=== PATIENT | male | born 1980 | race Caucasian/White ===

== ENCOUNTER 2018-10-03 15:17 | Emergency (ER) | payer BC, OTHER ==
[~2018-10-03] VITALS: Ht 193 cm; Wt 120.2 kg
--- NOTE | 2018-10-03 15:34 | ED Upper Extremity ---
General Chief Complaint: Laceration Stated Complaint: RIGHT INDEX FINGER LACERATION Source: patient Exam Limitations: no limitations History of Present Illness Date Seen by Provider: Oct 03, 2018 Time Seen by Provider: 15:33 Initial Comments 37-year-old male who presents to emergency room with complaints of laceration to his right second finger. He reports that he was running a table saw when his finger nail, in the blade. He has an avulsion to the distal tip of the finger. Bleeding is controlled at this time. He is not up-to-date on her tetanus vaccine. Onset: just prior to arrival Pain/Injury Location: right 2nd finger Method of Injury: incised Modifying Factors: Worse With Movement Allergies and Home Medications Allergies Coded Allergies: No Known Drug Allergies (Verified Allergy, Unknown, 01/09/08) Home Medications Hydrocodone Bit/Acetaminophen 1 Tab Tab, 1-2 EACH PO Q6H PRN for PAIN-MODERATE Prescribed by: ЕЛЕНА VARGAS on 10/03/18 1629 Patient Home Medication List Home Medication List Reviewed: Yes Review of Systems Constitutional: no symptoms reported, see HPI Skin: see HPI, other (laceration to right second finger. ) All Other Systems Reviewed Negative Unless Noted: Yes Past Peyttsr-Vubylj-Abicby Hx Past Med/Social Hx: Reviewed Nursing Past Med/Soc Hx Past Medical History Reproductive Disorders: No Family Medical History Reviewed Nursing Family Hx Physical Exam Vital Signs Vital Signs - First Documented 10/03/18 15:36 Temp 98.6 Pulse 86 Resp 14 B/P (MAP) 142/86 (104) Pulse Ox 98 O2 Delivery Room Air Capillary Refill : Height, Weight, BMI Height: '" Weight: lbs. oz. kg; BMI Method: General Appearance: WD/WN, no apparent distress Hand: Right, nail injury (avulsion to the distal tip of the nail on the right second finger.) Neurologic/Psychiatric: alert, normal mood/affect, oriented x 3 Skin: normal color, warm/dry Procedures/Interventions Wound Location: Upper Extremities Other Wound Location Right hand distal tip of the second finger. Partial nail avulsion. Wound Length (cm): 1 Wound's Depth, Shape: nail-avulsed Wound Explored: clean Irrigated w/ Saline (ccs): 500 Anesthesia: 1% Lidocaine (without epinephrine) Volume Anesthetic (ccs): 3 Other Closure Supply: Wound Adhesive Progress A digital block was performed on the right second finger. Approximately 1 mL was injected on both sides of the finger. The patient was given time for the anesthetic to set in and an additional 1mL was injected at the distal tip of the finger. A finger tourniquet was applied to control bleeding. Was cleaned and irrigated with normal saline and Betasept. Skin affix was applied to the distal tip of the avulsion nail. It was left that to dry. The finger tourniquet was removed and bleeding was controlled with glue. Patient tolerated procedure well. Progress/Results/Core Measures Results/Orders My Orders Medications Given in ED Vital Signs/I&O Departure Impression Primary Impression: Nail avulsion, finger Disposition: HOME, SELF-CARE Condition: Stable/Unchanged Departure-Patient Inst. Decision time for Depature: 16:27 Referrals: SNEHA WILKERSON MD (PCP/Family) Primary Care Physician Patient Instructions: Nail Avulsion (DC) Add. Discharge Instructions: Take medications as directed. You may use ibuprofen and Tylenol as directed by the bottle for pain relief. Watch for signs of infection such as increased redness, swelling, drainage, pain. Follow-up with her primary care provider as needed. Let the glue fall off on its own. Avoid lotions creams and ointments and soaps as this will cause breakdown to the glue. All discharge instructions reviewed with patient and/or family. Voiced understanding. Scripts Hydrocodone Bit/Acetaminophen (Hydrocodone/Acetaminophen 5/325mg Tablet) 1 Tab Tab 1-2 EACH PO Q6H PRN for PAIN-MODERATE MDD 10, #14 TAB Prov: ЕЛЕНА VARGAS 10/03/18 ЕЛЕНА VARGAS Oct 03, 2018 15:34
[2018-10-03] MEDS ORDERED: TETANUS,DIPTH,PERTUSS P/F (BOOSTRIX) 0.5 ML VIAL IM ONE (15:45)
[2018-10-03] MEDS ORDERED: LIDOCAINE 1% INJ 20 ML 20 ML VIAL INJ ONE (15:45)
--- NOTE | 2018-10-03 15:52 | Diagnostic Imaging Report ---
INDICATION: Injury to the tip of the second finger with a table saw. TIME OF EXAMINATION: 3:37 PM. TECHNIQUE: Three views of the right second finger were obtained. FINDINGS: The phalanges appear to be intact. No bony abnormality is seen. There appears to be a soft tissue injury involving the tip of the second finger. No definite radiopaque foreign body is seen. IMPRESSION: No acute bony abnormality is detected. Dictated by: Dictated on workstation # [id number]
[2018-10-03] MEDS ORDERED: ONDANSETRON 4 MG (ZOFRAN) ORAL DISSOLVE TAB ONE (16:02)
[2018-10-03] MEDS ORDERED: ACHD5005 PO (16:29)
[2018-10-03 16:33] VITALS: BP 142/86
== END 2018-10-03 16:45 | disposition home or self-care (01) ==
LOC: EDUNIT# 15:17 → ER 15:19
DX: S61.310A Laceration without foreign body of right index finger with damage to nail, initial encounter (principal); W31.2XXA Contact with powered woodworking and forming machines, initial encounter
CPT/HCPCS: 73140; 90715; 99284

== ENCOUNTER 2018-10-09 18:59 | Emergency (ER) | payer BC | END 2018-10-09 20:25 | disposition home or self-care (01) | LOC: ER 18:59 ==

== ENCOUNTER 2020-04-06 10:51 | Inpatient (IN) | payer BC ==
[~2020-04-06] VITALS: Ht 190.5 cm; Wt 122.3 kg
[~2020-04-06 10:51] MED LIST: ACHD5005 PO; CEPH-507 PO; ESCI10TA PO; IRBE150T23 PO; SULF1TAB35 PO
--- NOTE | 2020-04-06 11:37 | ED Abdominal Pain ---
General Chief Complaint: Abdominal/GI Problems Stated Complaint: DIARRHEA;ABD PAIN Nursing Triage Note: PT AMB TO RM 8 WITH COMPLAINT OF RLQ ABD PAIN AND DIARRHEA SINCE SATURDAY. STATES VOMITED ONCE THIS MORNING. Sepsis Screen: No Definite Risk Source of Information: Patient Exam Limitations: No Limitations History of Present Illness Date Seen by Provider: Apr 06, 2020 Time Seen by Provider: 11:35 Initial Comments To ER with reports of right lower quadrant abdominal pain that began on Saturday evening. He's had some diarrhea since then. He vomited once this morning. Last food intake was last night. No fevers. Timing/Duration: 2-3 Days Severity/Quality: Moderate Location: RLQ Radiation: No Radiation Activities at Onset: None Associated Symptoms: Nausea/Vomiting Allergies and Home Medications Allergies Coded Allergies: No Known Drug Allergies (Verified , 01/09/08) Home Medications Cephalexin 500 Mg Capsule, 500 MG PO TID Prescribed by: NELDA ECHEVARRIA on 10/09/182010 Hydrocodone Bit/Acetaminophen 1 Tab Tab, 1-2 EACH PO Q6H PRN for PAIN-MODERATE Prescribed by: ЕЛЕНА VARGAS on 10/03/18 1629 Irbesartan 150 Mg Tablet, 150 MG PO DAILY, (Reported) Patient Home Medication List Home Medication List Reviewed: Yes Review of Systems Review of Systems Constitutional: see HPI EENTM: No Symptoms Reported Respiratory: No Symptoms Reported Cardiovascular: No Symptoms Reported Gastrointestinal: See HPI, Abdominal Pain, Diarrhea, Nausea Genitourinary: No Symptoms Reported Musculoskeletal: no symptoms reported Skin: no symptoms reported Psychiatric/Neurological: No Symptoms Reported Endocrine: No Symptoms Reported Hematologic/Lymphatic: No Symptoms Reported Past Bbclxhp-Edlvss-Gviyil Hx Patient Social History Alcohol Use: Denies Use Recreational Drug Use: No Smoking Status: Current Everyday Smoker Type Used: Cigarettes 2nd Hand Smoke Exposure: No Recent Foreign Travel: No Contact w/Someone Who Travel: No Recent Infectious Disease Expo: No Recent Hopitalizations: No Immunizations Up To Date Tetanus Booster (TDap): More than 5yrs Seasonal Allergies Seasonal Allergies: No Past Medical History Surgeries: No Respiratory: No Cardiac: Yes Hypertension Neurological: No Reproductive Disorders: No Genitourinary: No Gastrointestinal: No Musculoskeletal: No Endocrine: No HEENT: No Cancer: No Psychosocial: Yes Anxiety Integumentary: No Blood Disorders: No Physical Exam Vital Signs Vital Signs - First Documented 7/22/20 11:12 Temp 36.7 Pulse 107 Resp 20 B/P (MAP) 122/89 (100) Pulse Ox 97 O2 Delivery Room Air Capillary Refill : Less Than 3 Seconds Height/Weight/BMI Height: 6'4.00" Weight: 265lbs. oz. 120.563588hl; 33.00 BMI Method:Stated General Appearance: WD/WN, no apparent distress Respiratory: normal breath sounds, no respiratory distress, no accessory muscle use Cardiovascular: regular rate, rhythm, no murmur Peripheral Pulses: 0 Carotid (R), 0 Carotid (L), 0 Femoral (R), 0 Femoral (L), 0 Dorsalis Pedis (R), 0 Left Dors-Pedis (L), 0 Radial Pulses (R), 0 Radial Pulses (L) Gastrointestinal: normal bowel sounds, soft, rebound, tenderness Extremities: normal range of motion, non-tender Neurologic/Psychiatric: alert, normal mood/affect, oriented x 3 Skin: normal color, warm/dry Progress/Results/Core Measures Results/Orders Lab Results Laboratory Tests Test 04/06/20 11:54 Range/Units White Blood Count 19.1 H 4.3-11.0 10^3/uL Red Blood Count 5.93 H 4.35-5.85 10^6/uL Hemoglobin 18.4 H 13.3-17.7 G/DL Hematocrit 52 40-54 % Mean Corpuscular Volume 88 80-99 FL Mean Corpuscular Hemoglobin 31 25-34 PG Mean Corpuscular Hemoglobin Concent 35 32-36 G/DL Red Cell Distribution Width 13.6 10.0-14.5 % Platelet Count 362 130-400 10^3/uL Mean Platelet Volume 10.0 7.4-10.4 FL Neutrophils (%) (Auto) 81 H 42-75 % Lymphocytes (%) (Auto) 9 L 12-44 % Monocytes (%) (Auto) 7 0-12 % Eosinophils (%) (Auto) 3 0-10 % Basophils (%) (Auto) 0 0-10 % Neutrophils # (Auto) 15.4 H 1.8-7.8 X 10^3 Lymphocytes # (Auto) 1.8 1.0-4.0 X 10^3 Monocytes # (Auto) 1.4 H 0.0-1.0 X 10^3 Eosinophils # (Auto) 0.5 H 0.0-0.3 10^3/uL Basophils # (Auto) 0.0 0.0-0.1 10^3/uL Neutrophils % (Manual) 75 % Lymphocytes % (Manual) 11 % Monocytes % (Manual) 5 % Eosinophils % (Manual) 3 % Basophils % (Manual) 0 % Band Neutrophils 6 % Blood Morphology Comment NORMAL Sodium Level 134 L 135-145 MMOL/L Potassium Level 4.6 3.6-5.0 MMOL/L Chloride Level 109 H 98-107 MMOL/L Carbon Dioxide Level 14 L 21-32 MMOL/L Anion Gap 11 5-14 MMOL/L Blood Urea Nitrogen 13 7-18 MG/DL Creatinine 1.11 0.60-1.30 MG/DL Estimat Glomerular Filtration Rate > 60 BUN/Creatinine Ratio 12 Glucose Level 114 H 70-105 MG/DL Calcium Level 8.8 8.5-10.1 MG/DL Corrected Calcium 8.5 8.5-10.1 MG/DL Total Bilirubin 0.6 0.1-1.0 MG/DL Aspartate Amino Transf (AST/SGOT) 23 5-34 U/L Alanine Aminotransferase (ALT/SGPT) 43 0-55 U/L Alkaline Phosphatase 99 40-136 U/L Total Protein 7.9 6.4-8.2 GM/DL Albumin 4.4 3.2-4.5 GM/DL My Orders Orders - NELDA ECHEVARRIA APRN Cbc With Automated Diff (04/06/20 11:30) Comprehensive Metabolic Panel (04/06/20 11:30) Ua Culture If Indicated (04/06/20 11:30) Ed Iv/Invasive Line Start (04/06/20 11:30) Ketorolac Injection (Toradol Injection) (04/06/20 11:45) Fentanyl Injection (Sublimaze Injection (04/06/20 11:45) Ns Iv 1000 Ml (Sodium Chloride 0.9%) (04/06/20 11:45) Ct Abd/Pelvis Wo(Kidney Stone) (04/06/20 11:33) Manual Differential (04/06/20 11:54) Ketorolac Injection (Toradol Injection) (04/06/20 12:30) Medications Given in ED Current Medications Medications Dose Ordered Sig/Mark Route Start Time Stop Time Status Last Admin Dose Admin Fentanyl Citrate 50 mcg ONCE ONCE IVP 04/06/20 11:45 04/06/20 11:46 DC 04/06/20 12:05 50 MCG Ketorolac Tromethamine 15 mg ONCE ONCE IVP 04/06/20 12:30 04/06/20 12:31 DC 04/06/20 12:05 15 MG Vital Signs/I&O 04/06/20 11:12 Temp 36.7 Pulse 107 Resp 20 B/P (MAP) 122/89 (100) Pulse Ox 97 O2 Delivery Room Air Blood Pressure Mean: 100 Diagnostic Imaging Diagonstic Imaging: CT Comments NAME: RADHA TREVINO [facility] REC#: [id number] PT STATUS: REG ER : 1980 PHYSICIAN: NELDA ECHEVARRIA APRN ADMIT DATE: 04/06/20/ER Draft Date of Exam:04/06/20 CT ABD/PELVIS WO(KIDNEY STONE) PROCEDURE: CT urinary tract, rule out kidney stone. TECHNIQUE: Multiple contiguous axial images were obtained through the abdomen and pelvis without the use of intravenous contrast. Auto Exposure Controls were utilized during the CT exam to meet ALARA standards for radiation dose reduction. INDICATION: Right flank pain Comparison is made to study of 06/17/2014. Unenhanced images of the liver, gallbladder, pancreas and spleen are unremarkable. There is also no evidence of adrenal gland abnormality. There are calcifications in the lower mediastinum which may be related to previous granulomatous exposure. There is no evidence of renal calculus or hydronephrosis. There is no evidence of ureteric stone or dilatation. No free fluid is seen within the abdomen or pelvis. The bladder is incompletely evaluated which limits evaluation. There is persistent prostatic calcification without interval change. No organized fluid collection is identified. Slight increased density at the root of mesentery is similar to previous study without evidence of pathologic adenopathy or abscess. IMPRESSION: Stable imaging of the abdomen without evidence of acute abnormality. In particular, there is no evidence of obstructive uropathy. Dictated on workstation # [id number] Dict: 04/06/20 1150 Trans: 04/06/20 1155 CV [id number] Interpreted by: DENIZ GAY MD Electronically signed by: Departure Communication (Admissions) Time/Spoke to Admitting Phy: 13:[address] Valdez, would like to admit to medicine, consult him. We will also consult radiology to see if this is amenable to participate in his drain. Dr. Escobedo felt as though he could aspirate this via a transgluteal approach. He'll discuss plan more with Dr. Valdez. We'll use Zosykalpesh plus yl. 1203-called radiology to discuss the cystic structure at the rectosigmoid junction. He agrees this could be abscess versus seroma. I will consult surgery. He'll add an addendum to the report. Impression Primary Impression: pericolonic mass Additional Impression: Abdominal pain Qualified Codes: R10.9 - Unspecified abdominal pain Disposition: ADMITTED INPATIENT Condition: Stable Admissions Decision to Admit Reason: Admit from ER (General) Decision to Admit/Date: Apr 06, 2020 Time/Decision to Admit Time: 13:29 Departure-Patient Inst. Referrals: SALAS WILLARD MD (PCP/Family) Primary Care Physician NELDA ECHEVARRIA APRN Apr 06, 2020 11:37
[2020-04-06] MEDS ORDERED: KETOROLAC 30 MG/ML VIAL IJ ONE (11:45)
[2020-04-06] MEDS ORDERED: fentaNYL INJECTION 100 MCG/2 ML AMP IVP ONE (11:45)
[2020-04-06] MEDS ORDERED: NS IV 1000 ML 1,000 ML IV SCH (11:45)
--- NOTE | 2020-04-06 11:55 | Diagnostic Imaging Report ---
PROCEDURE: CT urinary tract, rule out kidney stone. TECHNIQUE: Multiple contiguous axial images were obtained through the abdomen and pelvis without the use of intravenous contrast. Auto Exposure Controls were utilized during the CT exam to meet ALARA standards for radiation dose reduction. INDICATION: Right flank pain Comparison is made to study of 06/17/2014. Unenhanced images of the liver, gallbladder, pancreas and spleen are unremarkable. There is also no evidence of adrenal gland abnormality. There are calcifications in the lower mediastinum which may be related to previous granulomatous exposure. There is no evidence of renal calculus or hydronephrosis. There is no evidence of ureteric stone or dilatation. No free fluid is seen within the abdomen or pelvis. The bladder is incompletely evaluated which limits evaluation. Just superior and posterior to the urinary bladder there is a mildly lobulated circumscribed lesion which may contain fluid. The Hounsfield density is 14 indicating a density slightly greater than simple fluid. No definite internal nodule is identified. There is persistent prostatic calcification without interval change. No organized fluid collection is identified. Slight increased density at the root of mesentery is similar to previous study without evidence of pathologic adenopathy. IMPRESSION: No definite obstructive uropathy is identified however there is an approximately 6.8 x 6.3 x 4.8 cm presumed fluid collection posterior and superior to the urinary bladder which was not seen on study of 06/17/2014. This could represent hematoma or seroma. Possibility of infected fluid collection is not excluded. There does appear to be separation of the structure and the adjacent bladder however there is contact with the sigmoid colon. Diverticular abscess is considered less likely but not fully excluded. Dictated by: Dictated on workstation # [id number]
[2020-04-06 11:59] LABS: BASOPHILS % (AUTO) 0 % (0-10); EOSINOPHILS # (AUTO) 0.5 10^3/uL (0.0-0.3); EOSINOPHILS % (AUTO) 3 % (0-10); HEMATOCRIT 52 % (40-54); HEMOGLOBIN 18.4 G/DL (13.3-17.7); LYMPHOCYTES # (AUTO) 1.8 X 10^3 (1.0-4.0); LYMPHOCYTES % (AUTO) 9 % (12-44); MEAN CORPUSCULAR HEMOGLOBIN 31 PG (25-34); MEAN CORPUSCULAR HGB CONC 35 G/DL (32-36); MEAN CORPUSCULAR VOLUME 88 FL (80-99); MONOCYTES # (AUTO) 1.4 X 10^3 (0.0-1.0); MONOCYTES % (AUTO) 7 % (0-12); NEUTROPHILS # (AUTO) 15.4 X 10^3 (1.8-7.8); NEUTROPHILS % (AUTO) 81 % (42-75); PLATELET COUNT 362 10^3/uL (130-400); RED CELL DISTRIBUTION WIDTH 13.6 % (10.0-14.5); WHITE BLOOD COUNT 19.1 10^3/uL (4.3-11.0)
[2020-04-06 12:12] LABS: ALBUMIN 4.4 GM/DL (3.2-4.5); CHLORIDE 109 MMOL/L (98-107); POTASSIUM 4.6 MMOL/L (3.6-5.0); SODIUM 134 MMOL/L (135-145)
[2020-04-06 12:13] LABS: CALCIUM 8.8 MG/DL (8.5-10.1)
[2020-04-06 12:14] LABS: GLUCOSE 114 MG/DL (70-105)
[2020-04-06 12:15] LABS: TOTAL PROTEIN 7.9 GM/DL (6.4-8.2)
[2020-04-06 12:16] LABS: BILIRUBIN,TOTAL 0.6 MG/DL (0.1-1.0); CARBON DIOXIDE 14 MMOL/L (21-32)
[2020-04-06 12:18] LABS: ALKALINE PHOSPHATASE 99 U/L (40-136); CREATININE SERUM 1.11 MG/DL (0.60-1.30); GFR ESTIMATED > 60
[2020-04-06 12:19] LABS: BUN/CREATININE RATIO 12
[2020-04-06 12:21] LABS: ALANINE AMINOTRANSFERASE 43 U/L (0-55)
[2020-04-06] MEDS ORDERED: KETOROLAC 15 MG/ML VIAL IVP ONE (12:30)
[2020-04-06 12:39] LABS: BAND NEUTROPHILS 6 %; BASOPHILS % (MANUAL) 0 %; EOSINOPHILS % (MANUAL) 3 %; LYMPHOCYTES % (MANUAL) 11 %; MONOCYTES % (MANUAL) 5 %; NEUTROPHILS % (MANUAL) 75 %
[2020-04-06 12:40] LABS: RBC MORPH NORMAL
--- NOTE | 2020-04-06 14:50 | NUR ---
RADHA TREVINO admitted to room 413-1, with an admitting diagnosis of RECTOSIGMOID MASS, on 04/06/20 from ED via , accompanied by STAFF/. RADHA TREVINO introduced to surroundings, call light, bed controls, phone, TV, temperature control, lights, meal times, smoking policy, visitor policy, side rail policy, bathrooms and showers. Patient Rights given to patient in the handbook. RADHA TREVINO verbalizes understanding that [facility] is not responsible for the loss or damage to any personal effects or valuables that are kept in the patients posession during their hospitalization. RADHA TREVINO verbalizes understanding of Interdisciplinary Patient Education. Patient and/or family were informed about the Rapid Response Team and its purpose.
[2020-04-06 14:52] VITALS: BP 109/60
[2020-04-06] MEDS ORDERED: ONDANSETRON 4 MG/2 ML (SDV) Z0FRAN IVP PRN (15:15)
[2020-04-06] MEDS: fentaNYL INJECTION 100 MCG/2 ML AMP IVP PRN ×2 (15:16→20:13)
[2020-04-06] MEDS: LACTATED RINGERS 1,000 ML IV SCH ×2 (15:22→23:53)
[2020-04-06] MEDS ORDERED: PIPERACILLIN/TAZO 4.5 GM/NS 100 ML IV ONE ×2 (15:30)
[2020-04-06 15:53] VITALS: BP 113/67
--- NOTE | 2020-04-06 17:41 | History & Physical ---
HPI History of Present Illness: 39 yo male presented to ER due to severe lower abdominal/pelvic pain. He had diarrhea starting about 3 days ago and has had some nausea and vomited once. Today he had severe pelvic pain. He has not urinated since this morning, but states he has not felt the need to. He denies fever, blood in stool. Source: patient Date seen by provider: Apr 06, 2020 Time Seen by Provider: 13:40 Attending Physician Sukumar Castillo MD PCP Neeta Steinberg MD Consult Date of Admission Apr 06, 2020 at 13:36 Home Medications Home Medications Reviewed patient Home Medication Reconciliation performed by pharmacy medication reconciliations electronics warfare technician and/or nursing. Patients Allergies have been reviewed. Allergies Coded Allergies: No Known Drug Allergies (Verified , 01/09/08) XCV-Xfujpg-Ygkvxn Hx Patient Social History Alcohol Use: Denies Use Recreational Drug Use: No Smoking Status: Current Everyday Smoker Type Used: Cigarettes 2nd Hand Smoke Exposure: No Recent Foreign Travel: No Contact w/other who traveled: No Recent Hopitalizations: No Recent Infectious Disease Expo: No Immunizations Up To Date Tetanus Booster (TDap): More than 5yrs Past Medical History PMHx: HTN SurgHx: Denies Family Medical History Significant Family History: Hypertension Review of Systems ([facility]) Constitutional: No fever EENTM: No nose congestion, No throat pain Respiratory: No cough, No short of breath Cardiovascular: No chest pain Gastrointestinal: see HPI Genitourinary: No dysuria Musculoskeletal: no symptoms reported Skin: No rash Reviewed Test Results Reviewed Test Results Lab Laboratory Tests Test 04/06/20 11:54 Range/Units White Blood Count 19.1 H 4.3-11.0 10^3/uL Red Blood Count 5.93 H 4.35-5.85 10^6/uL Hemoglobin 18.4 H 13.3-17.7 G/DL Hematocrit 52 40-54 % Mean Corpuscular Volume 88 80-99 FL Mean Corpuscular Hemoglobin 31 25-34 PG Mean Corpuscular Hemoglobin Concent 35 32-36 G/DL Red Cell Distribution Width 13.6 10.0-14.5 % Platelet Count 362 130-400 10^3/uL Mean Platelet Volume 10.0 7.4-10.4 FL Neutrophils (%) (Auto) 81 H 42-75 % Lymphocytes (%) (Auto) 9 L 12-44 % Monocytes (%) (Auto) 7 0-12 % Eosinophils (%) (Auto) 3 0-10 % Basophils (%) (Auto) 0 0-10 % Neutrophils # (Auto) 15.4 H 1.8-7.8 X 10^3 Lymphocytes # (Auto) 1.8 1.0-4.0 X 10^3 Monocytes # (Auto) 1.4 H 0.0-1.0 X 10^3 Eosinophils # (Auto) 0.5 H 0.0-0.3 10^3/uL Basophils # (Auto) 0.0 0.0-0.1 10^3/uL Neutrophils % (Manual) 75 % Lymphocytes % (Manual) 11 % Monocytes % (Manual) 5 % Eosinophils % (Manual) 3 % Basophils % (Manual) 0 % Band Neutrophils 6 % Blood Morphology Comment NORMAL Sodium Level 134 L 135-145 MMOL/L Potassium Level 4.6 3.6-5.0 MMOL/L Chloride Level 109 H 98-107 MMOL/L Carbon Dioxide Level 14 L 21-32 MMOL/L Anion Gap 11 5-14 MMOL/L Blood Urea Nitrogen 13 7-18 MG/DL Creatinine 1.11 0.60-1.30 MG/DL Estimat Glomerular Filtration Rate > 60 BUN/Creatinine Ratio 12 Glucose Level 114 H 70-105 MG/DL Calcium Level 8.8 8.5-10.1 MG/DL Corrected Calcium 8.5 8.5-10.1 MG/DL Total Bilirubin 0.6 0.1-1.0 MG/DL Aspartate Amino Transf (AST/SGOT) 23 5-34 U/L Alanine Aminotransferase (ALT/SGPT) 43 0-55 U/L Alkaline Phosphatase 99 40-136 U/L Total Protein 7.9 6.4-8.2 GM/DL Albumin 4.4 3.2-4.5 GM/DL Radiology CT abd/pelvis 04/06:DRAFT IMPRESSION: No definite obstructive uropathy is identified however there is an approximately 6.8 x 6.3 x 4.8 cm presumed fluid collection posterior and superior to the urinary bladder which was not seen on study of 06/17/2014. This could represent hematoma or seroma. Possibility of infected fluid collection is not excluded. There does appear to be separation of the structure and the adjacent bladder however there is contact with the sigmoid colon. Diverticular abscess is considered less likely but not fully excluded. Physical Exam-([facility]) Physical Exam Vital Signs VS - Last 72 Hours, by Label 04/06/20 04/06/20 04/06/20 04/06/20 11:12 14:35 14:52 15:04 Temp 36.7 36.7 Pulse 107 94 94 Resp 20 20 20 B/P (MAP) 122/89 (100) 109/60 109/60 Pulse Ox 97 96 96 96 O2 Delivery Room Air Room Air Room Air Room Air 04/06/20 15:53 Temp 36.5 Pulse 87 Resp 16 B/P (MAP) 113/67 (82) Pulse Ox 95 O2 Delivery Room Air Capillary Refill : Less Than 3 SecondsLess Than 3 Seconds General Appearance: WD/WN, no apparent distress Respiratory: lungs clear, normal breath sounds Cardiovascular: regular rate, rhythm, no murmur Gastrointestinal: normal bowel sounds, distended (lower abdomen, ttp across both lower quadrants with some involuntary guarding) Extremities: no pedal edema Neurologic/Psychiatric: alert, normal mood/affect Skin: normal color, warm/dry Assessment/Plan Assessment/Plan Admission Status: Inpatient Order (span 2 midnights) Reason for Inpatient Admission: Large suspected intrabdominal abscess which will require IV abx and drainage. (1) Pelvic fluid collection Status: Acute Assessment & Plan: Suspect infection given leukocytosis and no explanation for a seroma or hematoma. IV zosyn and flagyl. Plan for IR drainage tomorrow for further evaluation. (2) Hypertension Status: Chronic Qualifiers: Qualified Codes: I10 - Essential (primary) hypertension (3) DVT prophylaxis Status: Acute Assessment & Plan: SCDs, no pharmacologic due to procedure planned. Clinical Quality Measures DVT/VTE Risk/Contraindication: RFS Level Per Nursing on Admit: 1=Low/No VTE PPX SUKUMAR CASTILLO MD Apr 06, 2020 17:41
[2020-04-06] MEDS: NICOTINE 21 MG (NICODERM) PATCH TD PRN (17:50)
--- NOTE | 2020-04-06 19:39 | Consultation - Surgery ---
History of Present Illness History of Present Illness Patient Consulted On(gloria/time) 04/06/20 19:33 Date Seen by Provider: Apr 06, 2020 Time Seen by Provider: 19:33 History of Present Illness Consult requested by Dr. Castillo for pelvic fluid collection. Patient is a 39 year old male who has had 3 days of lower right lower quadrant abdominal pain. That is sharp pressure type pain. Rated at worse 8/10, currently 4/10. Has had diarrhea for 3 days. No blood in stools. Patient states bowel movements seem to make pain worse. Stretching his body out seems to make pain a little better. Never had any symptoms like this before. Denies any abdominal or rectal trauma. Patient has some nuasea and emesis today. Pain has progressively worsened so came to [facility]. Ct abd/pelvis performed IMPRESSION: No definite obstructive uropathy is identified however there is an approximately 6.8 x 6.3 x 4.8 cm presumed fluid collection posterior and superior to the urinary bladder which was not seen on study of 06/17/2014. This could represent hematoma or seroma. Possibility of infected fluid collection is not excluded. There does appear to be separation of the structure and the adjacent bladder however there is contact with the sigmoid colon. Diverticular abscess is considered less likely but not fully excluded. Paitent denies fever sweats chills shortness of breath or chest pain. Allergies and Home Medications Allergies Coded Allergies: No Known Drug Allergies (Verified , 01/09/08) Home Medications Cephalexin 500 Mg Capsule, 500 MG PO TID Prescribed by: NELDA ECHEVARRIA on 10/09/182010 Hydrocodone Bit/Acetaminophen 1 Tab Tab, 1-2 EACH PO Q6H PRN for PAIN-MODERATE Prescribed by: ЕЛЕНА VARGAS on 10/03/18 1629 Irbesartan 150 Mg Tablet, 150 MG PO DAILY, (Reported) Patient Home Medication List Home Medication List Reviewed: Yes Past Guolcvu-Niholl-Vujnec Hx Patient Social History Alcohol Use: Past History Recreational Drug Use: No Smoking Status: Current Everyday Smoker Type Used: Cigarettes 2nd Hand Smoke Exposure: No Recent Foreign Travel: No Contact w/Someone Who Travel: No Recent Infectious Disease Expo: No Recent Hopitalizations: No Immunizations Up To Date Tetanus Booster (TDap): More than 5yrs Seasonal Allergies Seasonal Allergies: No Surgeries History of Surgeries: No Respiratory History of Respiratory Disorde: No Cardiovascular History of Cardiac Disorders: Yes Cardiac Disorders: Hypertension Neurological History of Neurological Disord: No Reproductive System Hx Reproductive Disorders: No Genitourinary History of Genitourinary Disor: No Gastrointestinal History of Gastrointestinal Di: No Musculoskeletal History of Musculoskeletal Dis: No Endocrine History of Endocrine Disorders: No HEENT History of HEENT Disorders: No Cancer History of Cancer: No Psychosocial History of Psychiatric Problem: Yes Behavioral Health Disorders: Anxiety Integumentary History of Skin or Integumenta: No Blood Transfusions History of Blood Disorders: No Reviewed Nursing Assessment Reviewed/Agree w Nursing PMH: Yes Family Medical History Significant Family History: Hypertension Review of Systems-General Constitutional: No chills, No fever EENTM: No hearing loss, No ear pain, No blurred vision Respiratory: No cough, No dyspnea on exertion Cardiovascular: No chest pain, No palpitations Gastrointestinal: RLQ, abdominal pain (RLQ), diarrhea, nausea, vomiting Genitourinary: decreased output; No hematuria Musculoskeletal: No back pain, No joint pain Skin: No change in color, No change in hair/nails Psychiatric/Neurological: Denies Anxiety, Denies Depressed, Denies Emotional Problems All Other Systems Reviewed Negative Unless Noted: Yes (Negative excepted noted.) Physical Exam-General Problems Physical Exam Vital Signs Vital Signs - First Documented 04/06/20 11:12 Temp 36.7 Pulse 107 Resp 20 B/P (MAP) 122/89 (100) Pulse Ox 97 O2 Delivery Room Air Capillary Refill : Less Than 3 SecondsLess Than 3 Seconds General Appearance: WD/WN, no apparent distress HEENT: PERRL/EOMI, normal ENT inspection Neck: non-tender, supple Respiratory: chest non-tender, no respiratory distress, no accessory muscle use Cardiovascular: regular rate, rhythm, no edema Gastrointestinal: soft, tenderness (right lower quadrant/suprapubic tenderness); No mass Rectal: deferred Back: no CVA tenderness, no vertebral tenderness Extremities: non-tender, normal inspection, no pedal edema 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, no motor/sensory deficits, alert, normal mood/affect, oriented x 3 Skin: normal color, warm/dry Lymphatic: no adenopathy Data Review Labs Laboratory Tests 04/06/20 11:54: White Blood Count 19.1H, Red Blood Count 5.93H, Hemoglobin 18.4H, Hematocrit 52, Mean Corpuscular Volume 88, Mean Corpuscular Hemoglobin 31, Mean Corpuscular Hemoglobin Concent 35, Red Cell Distribution Width 13.6, Platelet Count 362, Mean Platelet Volume 10.0, Neutrophils (%) (Auto) 81H, Lymphocytes (%) (Auto) 9L , Monocytes (%) (Auto) 7, Eosinophils (%) (Auto) 3, Basophils (%) (Auto) 0, Neutrophils # (Auto) 15.4H, Lymphocytes # (Auto) 1.8, Monocytes # (Auto) 1.4H, Eosinophils # (Auto) 0.5H, Basophils # (Auto) 0.0, Neutrophils % (Manual) 75, Lymphocytes % (Manual) 11, Monocytes % (Manual) 5, Eosinophils % (Manual) 3, Basophils % (Manual) 0, Band Neutrophils 6, Blood Morphology Comment NORMAL, Sodium Level 134L, Potassium Level 4.6, Chloride Level 109H, Carbon Dioxide Level 14L, Anion Gap 11, Blood Urea Nitrogen 13, Creatinine 1.11, Estimat Glomerular Filtration Rate > 60, BUN/Creatinine Ratio 12, Glucose Level 114H, Calcium Level 8.8, Corrected Calcium 8.5, Total Bilirubin 0.6, Aspartate Amino Transf (AST/SGOT) 23, Alanine Aminotransferase (ALT/SGPT) 43, Alkaline Phosphatase 99, Total Protein 7.9, Albumin 4.4 Assessment/Plan Assessment/Plan Assessment/Plan right lower quadrant/suprapubic abdominal pain pelvic fluid collection nausea vomiting leukocytosis Patient with pelvic fluid collection, and leukocytosis. No significant in flammatory response around the area of collection, it is next to the sigmoid colon. Discussed with Dr. Jonathan Escobedo that IR drainage will help identify what this collection is. If it is purulent will have drain placed. On Zosyn/flagyl for antibiotics. Clear liquids Await IR drainage, discussed with patient if can manage conservatively will need Colonoscopy in near future. May also need surgical intervention. Patient and family agree and understand plan. Follow labs. Clinical Quality Measures DVT/VTE Risk/Contraindication: RFS Level Per Nursing on Admit: 1=Low/No VTE PPX MAURICIO DUDLEY DO Apr 06, 2020 19:39
[2020-04-06 20:00] VITALS: BP 122/61
[2020-04-06] MEDS: metroNIDAZOLE 500 MG/100 ML IVPB (PRE-MIX) IV SCH (21:27)
[2020-04-06] MEDS ORDERED: PATIENT MAY USE OWN MED,SINGLE MED PO SCH (21:30)
[2020-04-06] MEDS: PIPERACILLIN/TAZO 4.5 GM/NS 100 ML IV SCH ×2 (22:40)
[2020-04-07] VITALS: BP 103/58
[2020-04-07] MEDS: fentaNYL INJECTION 100 MCG/2 ML AMP IVP PRN ×4 (00:13→10:27)
[2020-04-07 04:00] VITALS: BP 104/68
[2020-04-07 06:07] LABS: ALBUMIN 3.5 GM/DL (3.2-4.5)
[2020-04-07 06:08] LABS: CHLORIDE 110 MMOL/L (98-107); POTASSIUM 4.1 MMOL/L (3.6-5.0); SODIUM 138 MMOL/L (135-145)
[2020-04-07 06:09] LABS: CALCIUM 8.2 MG/DL (8.5-10.1)
[2020-04-07 06:10] LABS: GLUCOSE 94 MG/DL (70-105)
[2020-04-07 06:11] LABS: CARBON DIOXIDE 20 MMOL/L (21-32)
[2020-04-07 06:12] LABS: BILIRUBIN,TOTAL 0.7 MG/DL (0.1-1.0)
[2020-04-07 06:13] LABS: ALKALINE PHOSPHATASE 71 U/L (40-136)
[2020-04-07 06:14] LABS: CREATININE SERUM 0.98 MG/DL (0.60-1.30); GFR ESTIMATED > 60
[2020-04-07 06:15] LABS: BUN/CREATININE RATIO 10
[2020-04-07 06:17] LABS: ALANINE AMINOTRANSFERASE 27 U/L (0-55)
[2020-04-07] MEDS: metroNIDAZOLE 500 MG/100 ML IVPB (PRE-MIX) IV SCH ×3 (06:17→20:52)
[2020-04-07 06:29] LABS: BASOPHILS % (AUTO) 0 % (0-10); EOSINOPHILS # (AUTO) 0.5 10^3/uL (0.0-0.3); EOSINOPHILS % (AUTO) 6 % (0-10); HEMATOCRIT 41 % (40-54); HEMOGLOBIN 14.1 G/DL (13.3-17.7); LYMPHOCYTES % (AUTO) 25 % (12-44); MEAN CORPUSCULAR HEMOGLOBIN 31 PG (25-34); MEAN CORPUSCULAR HGB CONC 34 G/DL (32-36); MEAN CORPUSCULAR VOLUME 90 FL (80-99); MEAN PLATELET VOLUME 9.6 FL (7.4-10.4); MONOCYTES # (AUTO) 0.8 X 10^3 (0.0-1.0); MONOCYTES % (AUTO) 10 % (0-12); NEUTROPHILS # (AUTO) 4.8 X 10^3 (1.8-7.8); NEUTROPHILS % (AUTO) 59 % (42-75); PLATELET COUNT 249 10^3/uL (130-400); RED CELL DISTRIBUTION WIDTH 13.8 % (10.0-14.5); WHITE BLOOD COUNT 8.2 10^3/uL (4.3-11.0)
[2020-04-07 06:37] LABS: PROTHROMBIN TIME PATIENT 13.9 SEC (12.2-14.7)
[2020-04-07 08:00] VITALS: BP 113/71
[2020-04-07] MEDS: PIPERACILLIN/TAZO 4.5 GM/NS 100 ML IV SCH ×6 (08:13→20:49)
[2020-04-07] MEDS: LACTATED RINGERS 1,000 ML IV SCH ×3 (08:14→23:20)
[2020-04-07] MEDS: NICOTINE 21 MG (NICODERM) PATCH TD PRN (08:14)
[2020-04-07] MEDS: DOCUSATE SODIUM 100 MG (COLACE) CAP PO SCH (08:20)
[2020-04-07] MEDS: NICOTINE PATCH REMOVAL TP SCH (08:20)
[2020-04-07] MEDS ORDERED: MIDAZOLAM 2 MG/2 ML (VERSED) VIAL IVP ONE (08:30)
[2020-04-07] MEDS ORDERED: LIDOCAINE 1% INJ 20 ML 20 ML VIAL INJ ONE (08:30)
[2020-04-07] MEDS ORDERED: fentaNYL INJECTION 100 MCG/2 ML AMP IVP ONE (08:30)
[2020-04-07] MEDS ORDERED: DIATRIZOATE MEGLUM/SODIUM 37% 120 ML (GASTROGRAFIN) PO ONE (11:00)
[2020-04-07 11:42] VITALS: BP 142/76
[2020-04-07] MEDS ORDERED: morphine INJ 10 MG/ML 1ML (SYR OR VIAL) IVP PRN (11:45)
--- NOTE | 2020-04-07 11:59 | Diagnostic Imaging Report ---
PROCEDURE: CT pelvis without contrast. TECHNIQUE: Multiple contiguous axial images were obtained through the pelvis without the use of intravenous contrast. Sagittal and coronal reformations were performed. Auto Exposure Controls were utilized during the CT exam to meet ALARA standards for radiation dose reduction. INDICATION: Pelvic fluid collection. Patient presents for CT-guided drainage. Patient is brought to the CT suite, placed on table in the supine position. Rectal contrast was administered. Patient was given approximately 125 mL of Omnipaque and water solution and axial imaging through the pelvis was performed. There is complete filling of the rectum. The questionable fluid collection noted on CT one day earlier actually does represent the rectum. There is some questionable wall thickening of the rectum. There is an area of focal narrowing near the rectosigmoid junction, uncertain if this could be secondary to mass versus an area of spasm. In addition, there is some thickening at the anal rectal junction. No fluid collection is identified. Therefore, drainage procedure was canceled. There is some generalized bladder wall thickening however the bladder is incompletely distended. IMPRESSION: No evidence of pelvic fluid collection, therefore the drainage procedure was canceled. There is an area of narrowing near the rectosigmoid junction, as described above as well as some mild generalized rectal wall thickening on the left side. There is also some questionable thickening at the anorectal junction. Evaluation of these areas with endoscopy is recommended. Dictated by: Dictated on workstation # [id number]
[2020-04-07] MEDS: morphine INJ 4 MG/ML 1 ML (VIAL/SYRINGE) IV PRN ×5 (12:14→22:56)
--- NOTE | 2020-04-07 12:49 | Progress Note ---
Subjective Subjective/Events-last exam Afebrile. Still having a lot of pelvic pain, fentanyl helps for about [address] with rectal contrast this morning and reportedly the area of concern is not fluid filled, so no procedure done at this time. Objective Exam Last Set of Vital Signs Vital Signs Date Time Temp Pulse Resp B/P (MAP) Pulse Ox O2 Delivery O2 Flow Rate FiO2 04/07/20 11:42 35.8 72 18 142/76 (98) 98 Room Air Capillary Refill : Less Than 3 SecondsLess Than 3 Seconds I&O Intake and Output 04/07/20 00:00 Intake Total 1960 ml Balance 1960 ml Intake Oral 840 ml IV Total 1120 ml # Voids 3 # Bowel Movements 1 Daily Weight Change Unsure/Unresponsive Unsure General: Alert, No Acute Distress Lungs: Clear to Auscultation, Normal Air Movement Heart: Regular Rate, No Murmurs Abdomen: Normal Bowel Sounds, Other (distended, diffusely tender from level of umbilicus down) Psych/Mental Status: Mental Status NL Results/Procedures Lab Laboratory Tests 04/07/20 05:12: White Blood Count 8.2, Red Blood Count 4.60, Hemoglobin 14.1#, Hematocrit 41, Mean Corpuscular Volume 90, Mean Corpuscular Hemoglobin 31, Mean Corpuscular Hemoglobin Concent 34, Red Cell Distribution Width 13.8, Platelet Count 249, Mean Platelet Volume 9.6, Neutrophils (%) (Auto) 59, Lymphocytes (%) (Auto) 25, Monocytes (%) (Auto) 10, Eosinophils (%) (Auto) 6, Basophils (%) (Auto) 0, Neutrophils # (Auto) 4.8, Lymphocytes # (Auto) 2.0, Monocytes # (Auto) 0.8, Eosinophils # (Auto) 0.5H, Basophils # (Auto) 0.0, Prothrombin Time 13.9, INR Comment 1.0, Activated Partial Thromboplast Time 31, Sodium Level 138, Potassium Level 4.1, Chloride Level 110H, Carbon Dioxide Level 20L, Anion Gap 8, Blood Urea Nitrogen 10, Creatinine 0.98, Estimat Glomerular Filtration Rate > 60, BUN/Creatinine Ratio 10, Glucose Level 94, Calcium Level 8.2L, Corrected Calcium 8.6, Total Bilirubin 0.7, Aspartate Amino Transf (AST/SGOT) 17, Alanine Aminotransferase (ALT/SGPT) 27, Alkaline Phosphatase 71, Total Protein 6.0L, Albumin 3.[address] abd/pelvis 04/06:DRAFT IMPRESSION: No definite obstructive uropathy is identified however there is an approximately 6.8 x 6.3 x 4.8 cm presumed fluid collection posterior and superior to the urinary bladder which was not seen on study of 06/17/2014. This could represent hematoma or seroma. Possibility of infected fluid collection is not excluded. There does appear to be separation of the structure and the adjacent bladder however there is contact with the sigmoid colon. Diverticular abscess is considered less likely but not fully excluded. Assessment/Plan Assessment/Plan (1) Pelvic fluid collection Status: Acute Assessment & Plan: Suspect infection given leukocytosis and no explanation for a seroma or hematoma. IV zosyn and flagyl. Plan for IR drainage tomorrow for further evaluation. 04/[address], not fluid filled, awaiting Surgery recommendations. Leukocytosis resolved. (2) Hypertension Status: Chronic Assessment & Plan: Low normal BP, hold home irbesartan. Qualifiers: Qualified Codes: I10 - Essential (primary) hypertension (3) DVT prophylaxis Status: Acute Assessment & Plan: Low risk, ambulate Clinical Quality Measures DVT/VTE Risk/Contraindication: RFS Level Per Nursing on Admit: 1=Low/No VTE PPX SUKUMAR GARCIA MD Apr 07, 2020 12:49
--- NOTE | 2020-04-07 13:21 | NUR ---
"RD ASSESSMENT PMHx: HTN PT INTERACTION: Pt was awake and pleasant during nutrition consult for MST score. Pt states current appetite is good. Note PO intake 100% x1meal, per chart review. Pt states following a regular diet at home, and has no issues with chewing/swallowing food. Pt states some recent issues with nausea, vomiting, and diarrhea. Note last BM was 04/06, and currently on bowel regimen of colace qd, per chart review. Pt states no recent wt changes. Note unable to determine recent wt hx, per chart review. Upon visual assessment, pt appears very well nourished with no visible signs of muscle/fat wasting and a BMI of 33.7. Given current appetite, PO intake, wt hx, and visual assessment, pt does not meet criteria for malnutrition per ASPEN guidelines. ABNORMAL NUTRITION-RELATED LAB VALUES LOW: Ca 8.2; Pro 6.0 HIGH: Cl 110 Est. kcal needs: 1850 kcal | 15 kcal/kg Est. Pro needs: 99 g Pro | 0.8 g Pro/kg PES STATEMENT: Inadequate oral intake (NI-2.1) related to nausea | vomiting | diarrhea as evidenced by pt interview INTERVENTION: Note pt currently NPO status. Would recommend diet advancement when medically able and as tolerated. Pt may benefit from nutrition supplementation if PO intake declines. Will continue to follow and reassess as pt needs, intake, and status change. MONITOR/EVALUATE: PO Intake; Plan of Care; Hydration Status; Weight Status; Lab Values Costa Gtz, MS, RD, LD"
[2020-04-07 15:30] VITALS: BP 127/78
[2020-04-07] MEDS: ESCITALOPRAM 10 MG PO SCH (15:33)
--- NOTE | 2020-04-07 16:39 | Progress Note - Surgery ---
Subjective Date Seen by a Provider: Apr 07, 2020 Time Seen by a Provider: 16:33 Subjective/Events-last exam Patient still with rlq/suprapubic pain. Having diarrhea. No other complaints at this time. No more n/v. WBC normal Had ct scan with rectal contrast and not a fluid collection, rectosigmoid narrowing and slight rectal wall thickening. Objective Exam Vital Signs Date Time Temp Pulse Resp B/P (MAP) Pulse Ox O2 Delivery O2 Flow Rate FiO2 04/07/20 11:42 35.8 72 18 142/76 (98) 98 Room Air 04/07/20 08:00 36.0 74 18 113/71 (85) 97 Room Air 04/07/20 08:00 Room Air 04/07/20 04:00 36.2 63 20 104/68 (80) 97 Room Air 04/07/20 00:00 37.1 71 21 103/58 (73) 95 Room Air 04/06/20 20:00 36.6 72 16 122/61 (81) 97 Room Air 04/06/20 19:12 Room Air I & O 04/07/20 07:00 Intake Total 2210 ml Balance 2210 ml Capillary Refill : Less Than 3 SecondsLess Than 3 Seconds General Appearance: No Apparent Distress, WD/WN HEENT: PERRL/EOMI, Normal ENT Inspection Neck: Normal Inspection, Supple Respiratory: Chest Non Tender, No Accessory Muscle Use, No Respiratory Distress Peripheral Pulses: 0 Carotid (R), 0 Carotid (L), 0 Femoral (R), 0 Femoral (L), 0 Dorsalis Pedis (R), 0 Left Dors-Pedis (L), 0 Radial Pulses (R), 0 Radial Pulses (L) Gastrointestinal: soft, tenderness (right lower quadrant/suprapubic tenderness); No mass Neurologic/Psychiatric: Alert, Oriented x3, No Motor/Sensory Deficits, Normal Mood/Affect, 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 Skin: Normal Color, Warm/Dry Lymphatic: No Adenopathy Results Lab Laboratory Tests 04/07/20 05:12: White Blood Count 8.2, Red Blood Count 4.60, Hemoglobin 14.1#, Hematocrit 41, Mean Corpuscular Volume 90, Mean Corpuscular Hemoglobin 31, Mean Corpuscular Hemoglobin Concent 34, Red Cell Distribution Width 13.8, Platelet Count 249, Mean Platelet Volume 9.6, Neutrophils (%) (Auto) 59, Lymphocytes (%) (Auto) 25, Monocytes (%) (Auto) 10, Eosinophils (%) (Auto) 6, Basophils (%) (Auto) 0, Neutrophils # (Auto) 4.8, Lymphocytes # (Auto) 2.0, Monocytes # (Auto) 0.8, Eosinophils # (Auto) 0.5H, Basophils # (Auto) 0.0, Prothrombin Time 13.9, INR Comment 1.0, Activated Partial Thromboplast Time 31, Sodium Level 138, Potassium Level 4.1, Chloride Level 110H, Carbon Dioxide Level 20L, Anion Gap 8, Blood Urea Nitrogen 10, Creatinine 0.98, Estimat Glomerular Filtration Rate > 60, BUN/Creatinine Ratio 10, Glucose Level 94, Calcium Level 8.2L, Corrected Calcium 8.6, Total Bilirubin 0.7, Aspartate Amino Transf (AST/SGOT) 17, Alanine Aminotransferase (ALT/SGPT) 27, Alkaline Phosphatase 71, Total Protein 6.0L, Albumin 3.5 04/07/20 06:23: Erythrocyte Sedimentation Rate 8 Assessment/Plan Assessment/Plan Assessment/Plan right lower quadrant/suprapubic abdominal pain pelvic fluid collection nausea vomiting leukocytosis no procedure done for drainage since ct pelvis with rectal contrast did not show fluid collection but as noted in HPI will plan on flexible sigmoidoscopy to further evaluate enema tomorrow for prep risks and benefits were discussed and they understand-consent npo after midnight. Clinical Quality Measures DVT/VTE Risk/Contraindication: RFS Level Per Nursing on Admit: 1=Low/No VTE PPX MAURICIO DUDLEY DO Apr 07, 2020 16:39
[2020-04-07 20:19] VITALS: BP 133/69
[2020-04-08 00:40] VITALS: BP 115/61
[2020-04-08] MEDS: morphine INJ 4 MG/ML 1 ML (VIAL/SYRINGE) IV PRN ×5 (01:09→12:17)
[2020-04-08] MEDS: LACTATED RINGERS 1,000 ML IV SCH (03:06)
[2020-04-08 04:00] VITALS: BP 100/60
[2020-04-08] MEDS: PIPERACILLIN/TAZO 4.5 GM/NS 100 ML IV SCH ×2 (05:32)
[2020-04-08] MEDS: metroNIDAZOLE 500 MG/100 ML IVPB (PRE-MIX) IV SCH (05:32)
[2020-04-08 06:02] LABS: HEMOGLOBIN 12.7 G/DL (13.3-17.7); MEAN PLATELET VOLUME 9.9 FL (7.4-10.4); RED CELL DISTRIBUTION WIDTH 13.2 % (10.0-14.5); WHITE BLOOD COUNT 5.5 10^3/uL (4.3-11.0)
[2020-04-08 06:08] LABS: CHLORIDE 109 MMOL/L (98-107); POTASSIUM 3.7 MMOL/L (3.6-5.0); SODIUM 139 MMOL/L (135-145)
[2020-04-08 06:09] LABS: GLUCOSE 85 MG/DL (70-105)
[2020-04-08 06:11] LABS: CARBON DIOXIDE 24 MMOL/L (21-32)
[2020-04-08 06:13] LABS: CREATININE SERUM 0.93 MG/DL (0.60-1.30); GFR ESTIMATED > 60
[2020-04-08 06:14] LABS: BUN/CREATININE RATIO 6
--- NOTE | 2020-04-08 07:58 | NUR ---
AT APPROXIMATELY 0645 THIS RN LOOKED AT PT'S LAB RESULTS ON STATUS BOARD AND NOTED THAT PT'S COVID-19 TEST HAD COME BACK POSITIVE. OPHTHALMIC TECH NOTIFIED. DR. GARCIA AND DR. PENA NOTIFIED. ORDERS RECEIVED TO PUT PT IN ISOLATION. PT WAS NOTIFIED OF POSITIVE RESULTS AND MOVED TO ROOM 432.
[2020-04-08 08:00] VITALS: BP 136/77
[2020-04-08] MEDS: DOCUSATE SODIUM 100 MG (COLACE) CAP PO SCH (08:46)
[2020-04-08] MEDS: NICOTINE PATCH REMOVAL TP SCH (08:47)
[2020-04-08] MEDS: ESCITALOPRAM 10 MG PO SCH (08:49)
[2020-04-08] MEDS: NICOTINE 21 MG (NICODERM) PATCH TD PRN (09:15)
[2020-04-08] MEDS ORDERED: HYDR-83 PO (11:42)
--- NOTE | 2020-04-08 11:56 | Discharge Summary ---
Discharge Summary Hospital Course Problems/Diagnosis: (1) Pelvic fluid collection Status: Acute Assessment & Plan: Suspect infection given leukocytosis and no explanation for a seroma or hematoma. IV zosyn and flagyl. Plan for IR drainage tomorrow for further evaluation. 04/[address], not fluid filled, awaiting Surgery recommendations. Leukocytosis resolved. 04/08- rectal wall thickening and rectosigmoid junction narrowing noted on rectal contrast CT, plan was for flexible sigmoidoscopy, however, preop COVID test was positive, since sigmoidoscopy is not emergent, deferred until after COVID isolation released (unless emergent symptoms develop before then). Discussed with patient and he preferred to go home, will send with hydrocodone given severe pain and using IV pain medication inpatient. Stool test for blood negative, ESR low, WBC normal after first day, do not highly suspect bacterial infection with no inflammatory evidence on CT either, so did not d/c on antibiotics. Unclear how much of his symptoms may be COVID related or if this is an incidental positive. (2) Hypertension Status: Chronic Assessment & Plan: Low normal BP, hold home irbesartan. Qualifiers: Qualified Codes: I10 - Essential (primary) hypertension (3) COVID-19 Status: Acute Assessment & Plan: No respiratory symptoms, see above under pelvic fluid collection. Hospital Course Date of Admission: Apr 06, 2020 at 13:36 Admission Diagnosis : Family Physician/Provider: Salas Willard MD Date of Discharge: 04/08/20 Discharge Diagnosis: [ ] Hospital Course: [ ] Labs and Pending Lab Test: Laboratory Tests 04/07/20 16:27: Coronavirus (COVID-19)(PCR) PositiveH 04/07/20 17:45: Stool Occult Blood Immunoassay NEGATIVE 04/08/20 05:42: White Blood Count 5.5, Red Blood Count 4.13L, Hemoglobin 12.7L, Hematocrit 37L, Mean Corpuscular Volume 90, Mean Corpuscular Hemoglobin 31, Mean Corpuscular Hemoglobin Concent 34, Red Cell Distribution Width 13.2, Platelet Count 213, M shashi Platelet Volume 9.9, Sodium Level 139, Potassium Level 3.7, Chloride Level 109H, Carbon Dioxide Level 24, Anion Gap 6, Blood Urea Nitrogen 6L, Creatinine 0.93, Estimat Glomerular Filtration Rate > 60, BUN/Creatinine Ratio 6, Glucose Level 85, Calcium Level 8.0L Home Meds Active Reported Lexapro (Escitalopram Oxalate) 10 Mg Tablet 10 Mg PO Irbesartan 150 Mg Tablet 150 Mg PO DAILY Assessment/Pt DC Instructions Follow up with Dr. Valdez as directed Follow up with Dr. Willard at 11:40 am by electronic visit- NOT in person visit. Remain isolated at home until notified by health department that you may be released from isolation. Discharge Diet: No Restrictions Activity as Tolerated: Yes Discharge Physical Examination Allergies: Coded Allergies: No Known Drug Allergies (Verified , 01/09/08) General Appearance: No Apparent Distress, WD/WN Respiratory: Lungs Clear, Normal Breath Sounds Cardiovascular: Regular Rate, Rhythm, No Murmur Gastrointestinal: Normal Bowel Sounds, Distended, Tenderness (decreased from prior) Skin: Normal Color, Warm/Dry Neurologic/Psychiatric: Alert, Normal Mood/Affect Copy Copies To 1: SALAS WILLARD MD Clinical Quality Measures DVT/VTE Risk/Contraindication: RFS Level Per Nursing on Admit: 1=Low/No VTE PPX SUKUMAR GARCIA MD Apr 08, 2020 11:54
--- NOTE | 2020-04-08 12:30 | NUR ---
PT DISCHARGED TO HOME. PT GIVEN SELF ISOLATION INFO ALONG WITH D/C PACKET
== END 2020-04-08 12:30 | disposition home or self-care (01) | DRG 371 ==
LOC: EDUNIT# 10:51 → ER 10:55 → 4TH 13:36
PROVIDERS: ADMIT Family Medicine; ATTEND Family Medicine
DX: K65.0 Generalized (acute) peritonitis (principal); U07.1 COVID-19; R10.31 Right lower quadrant pain; R19.7 Diarrhea, unspecified; R11.10 Vomiting, unspecified; I10 Essential (primary) hypertension; F41.9 Anxiety disorder, unspecified; F17.210 Nicotine dependence, cigarettes, uncomplicated; D72.829 Elevated white blood cell count, unspecified
CPT/HCPCS: 36415; 72192; 74176; 80048; 80053; 82274; 85007; 85025; 85027; 85610; 85652; 85730; 87015; 87045; 87046; 87081; 87635; 87899; 96361; 96374; 96375

== ENCOUNTER → 2020-04-14 | Outpatient (CLI) | payer BC ==
[~2020-04-14] MED LIST changes: +CATHETER FLUSH 10 ML SYR IV PRN; +DIATRIZOATE MEGLUM/SODIUM 37% 120 ML (GASTROGRAFIN) PO ONE; +HOLD METFORMIN - RECEIVED CONTRAST 20 ML VIAL IV SCH; +HYDR-3812 PO; +IOHEXOL 350 MG/ML 100 ML (OMNIPAQUE 350) VIAL IV ONE; +NS 100 ML (IVPB) BAG IV ONE
[2020-04-14 13:19] LABS: BASOPHILS % (AUTO) 1 % (0-10); EOSINOPHILS # (AUTO) 0.7 10^3/uL (0.0-0.3); EOSINOPHILS % (AUTO) 10 % (0-10); HEMATOCRIT 39 % (40-54); HEMOGLOBIN 13.5 G/DL (13.3-17.7); LYMPHOCYTES # (AUTO) 1.6 X 10^3 (1.0-4.0); LYMPHOCYTES % (AUTO) 25 % (12-44); MEAN CORPUSCULAR HEMOGLOBIN 31 PG (25-34); MEAN CORPUSCULAR HGB CONC 34 G/DL (32-36); MEAN CORPUSCULAR VOLUME 91 FL (80-99); MEAN PLATELET VOLUME 9.8 FL (7.4-10.4); MONOCYTES # (AUTO) 0.4 X 10^3 (0.0-1.0); MONOCYTES % (AUTO) 6 % (0-12); NEUTROPHILS # (AUTO) 3.8 X 10^3 (1.8-7.8); NEUTROPHILS % (AUTO) 58 % (42-75); PLATELET COUNT 238 10^3/uL (130-400); RED CELL DISTRIBUTION WIDTH 13.3 % (10.0-14.5); WHITE BLOOD COUNT 6.5 10^3/uL (4.3-11.0)
[2020-04-14 13:38] LABS: ALANINE AMINOTRANSFERASE 73 U/L (0-55); ALBUMIN 3.7 GM/DL (3.2-4.5); ALKALINE PHOSPHATASE 61 U/L (40-136); AMYLASE 25 U/L (25-125); BILIRUBIN,TOTAL 0.3 MG/DL (0.1-1.0); BUN/CREATININE RATIO 10; CALCIUM 8.7 MG/DL (8.5-10.1); CARBON DIOXIDE 22 MMOL/L (21-32); CHLORIDE 110 MMOL/L (98-107); GFR ESTIMATED > 60; GLUCOSE 88 MG/DL (70-105); LIPASE 14 U/L (8-78); POTASSIUM 4.2 MMOL/L (3.6-5.0); SODIUM 140 MMOL/L (135-145); TOTAL PROTEIN 6.3 GM/DL (6.4-8.2)
--- NOTE | 2020-04-14 15:08 | Diagnostic Imaging Report ---
PROCEDURE: CT abdomen and pelvis with contrast. TECHNIQUE: Multiple contiguous axial images were obtained through the abdomen and pelvis after administration of intravenous contrast. Auto Exposure Controls were utilized during the CT exam to meet ALARA standards for radiation dose reduction. INDICATION: Abdominal pain, diarrhea, positive COVID. FINDINGS: The recent CT abdomen/pelvis exam of 04/06/2020 noted a 6.8 x 6.3 x 4.8 cm fluid collection posterior and superior to the urinary bladder. The subsequent CT pelvis exam of 04/07/2020 revealed that this was related to fluid within the rectosigmoid portion of the colon. The CT pelvis exam also raised a question of thickening of the anorectal junction and recommended that endoscopy be performed. It is my understanding that the endoscopic procedure could not be performed immediately due to the patient's positive COVID status. On this exam, the fluid within the rectosigmoid colon seen previously has resolved. There is still a suggestion of slight narrowing of the anorectal junction. It is my understanding that endoscopy is still pending for further evaluation. There is no pelvic mass or free fluid collection noted. The urinary bladder and prostate gland are grossly unremarkable. The appendix was visualized and is not abnormally thickened. There is no evidence for a bowel obstruction. There is no mass or abscess visualized either. The liver is mildly enlarged and of lower density than usually seen. This does suggest fatty metamorphosis. There is no focal mass involving the liver and the biliary tree is not abnormally dilated. The spleen is also mildly enlarged measuring approximately 14.6 cm in length. The spleen does seem homogeneous. The pancreas, the adrenals, the gallbladder, the kidneys, the aorta, and inferior vena cava show no sign of an acute abnormality. The stomach is partially filled with oral contrast and gas and difficult to evaluate. There is no obvious gastric abnormality evident. The lung bases are generally clear. There is a small amount of chronic atelectasis/scar formation in the lingula. This is unchanged when compared to the prior exam. The bone windows show no sign of a fracture or of a destructive lesion. IMPRESSION: 1. There is no acute abnormality of the abdomen or pelvis. 2. There is mild hepatosplenomegaly. These findings are similar to the prior exam. 3. These results were called to Rand at Dr. Steinberg's office. Dictated by: Dictated on workstation # [id number]
== END ==
LOC: RAD 14:15
PROVIDERS: ATTEND Pediatrics
DX: U07.1 COVID-19 (principal); R10.84 Generalized abdominal pain; R19.7 Diarrhea, unspecified; R16.2 Hepatomegaly with splenomegaly, not elsewhere classified
CPT/HCPCS: 36415; 74177; 80053; 80074; 82150; 82274; 83690; 85025; 87015; 87045; 87046; 87324; 87328; 87329; 87449; 87899; 89055

== ENCOUNTER 2020-04-21 12:38 | Outpatient (CLI) | payer BC ==
[~2020-04-21] VITALS: Ht 190 cm; Wt 118.0 kg
[~2020-04-21 12:38] MED LIST changes: -CATHETER FLUSH 10 ML SYR IV PRN; -DIATRIZOATE MEGLUM/SODIUM 37% 120 ML (GASTROGRAFIN) PO ONE; -HOLD METFORMIN - RECEIVED CONTRAST 20 ML VIAL IV SCH; -IOHEXOL 350 MG/ML 100 ML (OMNIPAQUE 350) VIAL IV ONE; -NS 100 ML (IVPB) BAG IV ONE
== END 2020-04-21 12:44 | disposition home or self-care (01) ==
LOC: PREOP 12:38
PROVIDERS: ATTEND Surgery
DX: Z01.818 Encounter for other preprocedural examination (principal)

== ENCOUNTER 2020-04-26 13:13 | Day surgery (SDC) | payer BC ==
[2020-04-26] VITALS (8 sets, daily range): BP systolic 101–122; BP diastolic 57–77
[~2020-04-26] VITALS: Ht 190 cm; Wt 118.0 kg
[2020-04-26] MEDS ORDERED: LACTATED RINGERS 1,000 ML IV STA (13:21)
[2020-04-26] MEDS ORDERED: LACTATED RINGERS 1,000 ML IV ONE (13:26)
--- NOTE | 2020-04-26 14:57 | Progress Note-Pre Operative ---
Pre-Operative Progress Note H&P Reviewed The H&P was reviewed, patient examined and no changes noted. Date Seen by Provider: Apr 26, 2020 Time Seen by Provider: 14:57 Date H&P Reviewed: Apr 26, 2020 Time H&P Reviewed: 14:57 Pre-Operative Diagnosis: abnormal ct scan MAURICIO DUDLEY DO Apr 26, 2020 14:57
[2020-04-26] MEDS ORDERED: proPOfol 200 MG/20 ML (DIPRIVAN) VIAL IV ONE (16:04)
[2020-04-26] MEDS ORDERED: MIDAZOLAM 2 MG/2 ML (VERSED) VIAL ONE (16:04)
[2020-04-26] MEDS ORDERED: PROPOFOL INJECTION 50 ML IV ONE (16:19)
--- NOTE | 2020-04-26 16:49 | Anesthesia-General Post-Op ---
MAC Patient Condition Mental Status/LOC: Same as Preop Cardiovascular: Satisfactory Nausea/Vomiting: Absent Respiratory: Satisfactory Pain: Controlled Complications: Absent Post Op Complications Complications None Follow Up Care/Instructions Patient Instructions None needed. Anesthesiology Discharge Order Discharge Order Patient is doing well, no complaints, stable vital signs, no apparent adverse anesthesia problems. No complications reported per nursing. NIEVES RICE CRNA Apr 26, 2020 16:49
--- NOTE | 2020-04-26 16:51 | Progress Note-Post Operative ---
Post-Operative Progess Note Surgeon (s)/Sales Vice President (s) Surgeon MAURICIO DUDLEY DO Sales Vice President: na Pre-Operative Diagnosis abnormal ct scan Post-Operative Diagnosis hepatic flexure polyp and sigmoid polyp Procedure & Operative Findings Date of Procedure 04/26/20 Procedure Performed/Findings colonoscopy c hot bx polypectomy x 2 Anesthesia Type per aws developer Estimated Blood Loss Estimated blood loss (mL): na Specimens/Packing Specimens Removed colon polyps MAURICIO DUDLEY DO Apr 26, 2020 16:51
--- NOTE | 2020-04-26 16:52 | Discharge Inst-Simple/Standard ---
Discharge Inst-Standard Patient Instructions/Follow Up Plan of Care/Instructions/FU: 2 weeks José Miguel Activity as Tolerated: Yes Discharge Diet: Regular Diet MAURICIO DUDLEY DO Apr 26, 2020 16:52
--- NOTE | 2020-04-27 01:07 | OPERATIVE REPORT ---
DATE OF SERVICE: 04/26/2020 PREOPERATIVE DIAGNOSIS: Abnormal CT scan of the rectum. POSTOPERATIVE DIAGNOSIS: Colon polyps x2. PROCEDURE: Colonoscopy with hot biopsy polypectomy x2. SURGEON: Mauricio Valdez DO ANESTHESIA: Per EXPERIMENTAL FLIGHT TEST MECHANIC. ESTIMATED BLOOD LOSS: None. COMPLICATIONS: None. INDICATIONS: The patient is a 39-year-old male with abnormal CT scan of the rectum demonstrating thickening and dilatation of the rectum. The patient understands risks and benefits of procedure and wished to proceed with procedure. Consent was signed in the chart. DESCRIPTION OF PROCEDURE: The patient was taken to the endoscopy suite, placed in left lateral recumbent position. Timeout was performed. Digital rectal exam was performed. No palpable polyps, masses or ulcerations. Scope was inserted in the rectum, advanced all the way to the end of the sigmoid and continued to be advanced easily with good prep all the way to the cecum. There were no polyps, masses or ulcerations within the cecum. Scope was then continued to be slowly retracted back. No polyps, masses or ulcerations in the ascending colon until the hepatic flexure where a small polyp was present where hot biopsy polypectomy was performed. Scope was then continued to slowly retracted back. There were no polyps, masses or ulcerations in the remainder of the transverse and descending colon. In the sigmoid colon, proximal portion of it a polyp was present, which hot biopsy polypectomy was performed. Scope was then slowly retracted back all the way down to the rectum, where it was also retroflexed noting no other pathology. Scope was returned to its normal position, slowly withdrawn until completely removed. The patient tolerated procedure well without any complications, taken to recovery room in stable condition. RECOMMENDATIONS: The patient will need repeat colonoscopy in 5 years. If he has any issues before that be seen at that time. The patient will follow up in the office in 2 weeks. Job ID: [id number] DocumentID: [id number] Dictated Date: 04/26/2020 16:55:54 Acoustical Engineer Date: 04/27/2020 01:06:54 Dictated By: MAURICIO VALDEZ DO
== END 2020-04-26 17:15 | disposition home or self-care (01) ==
LOC: ENDO 13:13
PROVIDERS: ATTEND Surgery
DX: K63.5 Polyp of colon (principal); I10 Essential (primary) hypertension; F41.9 Anxiety disorder, unspecified; F17.210 Nicotine dependence, cigarettes, uncomplicated; Z79.899 Other long term (current) drug therapy